=== PATIENT | female | born 1980 | race Caucasian/White ===

== ENCOUNTER → 2019-12-29 13:57 | Outpatient (CLI) | payer OTHER, SELFPAY ==
[2019-12-29 14:58] LABS: Cholesterol 189 mg/dL (140-199); HDL Cholesterol 54 mg/dL (40-60); LDL Cholesterol Calculated 114 mg/dL (<100); Triglycerides 105 mg/dL (35-150)
== END ==
PROVIDERS: Referring Provider Internal Medicine Cardiovascular Disease; Visit Provider Internal Medicine Cardiovascular Disease
DX: Z00.00 Encounter for general adult medical examination without abnormal findings (principal)
CPT/HCPCS: 36415; 80061